=== PATIENT | female | born 1995 | race Caucasian/White ===

== ENCOUNTER 2020-11-06 19:05 | Emergency (ER) | payer OTHER ==
[~2020-11-06] VITALS: Ht 149.9 cm; Wt 70.5 kg
[2020-11-06 19:09] VITALS: TEMP 98.4
[2020-11-06] MEDS ORDERED: NEURONTIN300 MG/CAP PO (19:42)
[2020-11-06] MEDS ORDERED: LEXAPRO 5MG5 MG PO (19:42)
[2020-11-06 20:09] LABS: BASO # 0.1 (0.0-0.2); BASO % 1.3 % (0.0-2.0); EOS # 0.1 (0.0-0.7); EOS % 1.3 % (0-4.0); GRAN # 5.1 (1.4-6.5); GRAN % 50.1 % (42.2-75.2); HEMATOCRIT 40.1 % (37.0-47.0); HEMOGLOBIN 13.4 g/dl (12.5-16.0); LYMPH # 4.2 (1.2-3.4); LYMPH % 40.9 % (20.0-51.0); MEAN CELL VOLUME 82 fl (80.0-100.0); MEAN CORPUSCULAR HEMOGLOBIN 27 pg (27.0-31.0); MEAN CORPUSCULAR HGB CONC 33 g/dl (33.0-37.0); MONO # 0.6 (0.1-0.6); MONO % 6.2 % (1.7-9.3); PLATELET COUNT 582 K/mm3 (130-400); REDCELL DISTRIBUTION WIDTH-CV 12.7 % (11.5-14.5)
[2020-11-06 20:13] LABS: ALANINE AMINOTRANSFERASE 24 U/L (4-34); ALBUMIN 4.9 gm/dL (3.5-5.0); ALKALINE PHOSPHATASE 89 U/L (50-136); ANION GAP 11 mmol/L (7-16); AST,SGOT 32 U/L (15-37); BILIRUBIN,TOTAL 0.5 mg/dL (0.0-1.0); BLOOD UREA NITROGEN 12 mg/dL (7-17); CALCIUM 9.6 mg/dL (8.4-10.2); CARBON DIOXIDE 28 mmol/L (22-30); CHLORIDE 101 mmol/L (98-107); CREATININE, serum 0.69 (0.52-1.25); GLUCOSE 107 mg/dL (74-106); LIPASE 112 U/L (23-300); POTASSIUM 3.2 mmol/L (3.4-5.0); SODIUM 139 mmol/L (137-145); TOTAL PROTEIN 8.6 gm/dL (6.4-8.2)
[2020-11-06 20:25] LABS: TROPONIN-I < 0.012 ng/mL (0.000-0.035)
[2020-11-06 23:06] VITALS: BP 115/68; PULSE 72
== END 2020-11-06 23:15 | disposition home or self-care (01) ==
LOC: COL.ER 19:05 → EDBD 19:07 → COL.ER 19:07
PROVIDERS: Emergency Medicine
DX: R42 Dizziness and giddiness (principal); R07.89 Other chest pain; F32.9 Major depressive disorder, single episode, unspecified; G89.29 Other chronic pain; M54.5 Low back pain
CPT/HCPCS: J7030; Q9967

== ENCOUNTER 2022-05-02 18:20 | Day surgery (SDC) | payer OTHER ==
[~2022-05-02] VITALS: Ht 149.9 cm; Wt 75.2 kg
[~2022-05-02 18:20] MED LIST: LEXAPRO 5MG5 MG PO; NEURONTIN300 MG/CAP PO
[2022-05-02 18:37] LABS: BASO # 0.1 K/mm3 (0.0-0.2); BASO % 1.1 % (0.0-2.0); EOS # 0.1 K/mm3 (0.0-0.7); EOS % 0.9 % (0.0-4.0); GRAN # 6.6 K/mm3 (1.4-6.5); GRAN % 64.7 % (42.2-75.2); HEMATOCRIT 37.6 % (37.0-47.0); HEMOGLOBIN 12.6 g/dl (12.5-16.0); LYMPH # 2.8 K/mm3 (1.2-3.4); LYMPH % 27.1 % (20.0-51.0); MEAN CELL VOLUME 82 fl (80.0-100.0); MEAN CORPUSCULAR HEMOGLOBIN 27 pg (27-31); MEAN CORPUSCULAR HGB CONC 34 g/dl (33.0-37.0); MEAN PLATELET VOLUME 9.3 fl (7.4-10.4); MONO # 0.6 K/mm3 (0.1-0.6); MONO % 5.9 % (1.7-9.3); PLATELET COUNT 510 K/mm3 (130-400); RED BLOOD COUNT 4.61 M/mm3 (4.10-5.30); REDCELL DISTRIBUTION WIDTH-CV 13.2 % (11.5-14.5)
[2022-05-02 19:05] LABS: ALBUMIN 4.3 gm/dL (3.5-5.0); BILIRUBIN,TOTAL 0.5 mg/dL (0.2-1.2); C-REACTIVE PROTEIN 0.88 mg/dL (0.00-0.50); CALCIUM 9.7 mg/dL (8.4-10.2); CREATININE, serum 0.73 mg/dL (0.57-1.11); POTASSIUM 4.3 mmol/L (3.5-4.5); TOTAL PROTEIN 8.4 gm/dL (6.2-8.1)
[2022-05-02 19:51] LABS: COLLECTION METHOD CLEAN CATCH
[2022-05-02 19:54] LABS: URINE APPEARANCE Cloudy (CLEAR/HAZY); URINE COLOR Amber (YELLOW)
[2022-05-02 19:55] LABS: PH 5.5 (5.0-8.5); URINE BLOOD 3+ (NEGATIVE); URINE GLUCOSE Negative (NEGATIVE); URINE KETONE 1+ (NEGATIVE); URINE NITRATE Negative (NEGATIVE); URINE PROTEIN(semi-quant) 2+ (NEGATIVE); URINE UROBILINOGEN 0.2 E.U/dL (0.2-1.0)
[2022-05-02 20:09] LABS: MUCOUS Present (NOT PRESENT); URINE BACTERIA None Seen /hpf (NONE SEEN); URINE RBC >50 /hpf (0-2)
[2022-05-02] MEDS ORDERED: PRENATAL TABLET PO (22:57)
[2022-05-02 23:14] VITALS: BP 115/83; PULSE 82; TEMP 97.8
[2022-05-03] VITALS (10 sets, daily range): BP systolic 94–112; BP diastolic 47–76; PULSE 55–78; TEMP 97.5–98
--- NOTE | 2022-05-03 06:35 | NUR ---
END OF SHIFT NOTE: PATIENT RESTED QUIETLY UPON ARRIVAL. PATIENT ATE BOXED LUNCH PRIOR TO MIDNIGHT THEN WAS MADE NPO. PATIENT INDEPENDENT IN ROOM. PATIENT RECEIVED ONE PRN DOSE OF PAIN MEDICATION AND SCHEDULED TYLENOL.
--- NOTE | 2022-05-03 08:00 | NUR ---
PATIENT IS A&O. VSS. PATIENT RESTING UP IN BED WITH NO COMPLAINTS. NPO FOR SURGERY LATER TODAY. IV FLUIDS INFUSING INTO RIGHT HAND VIA PUMP. PATIENT IS HER 7 MONTH OLD BABY AND IS PUMPING WHILE HERE, SUPPLIES AT BEDSIDE. HEAD TO TOE ASSESSMENT COMPLETE. NO OTHER NEEDS AT THIS TIME. INDEPENDENT IN ROOM. CALL LIGHT IN REACH.
--- NOTE | 2022-05-03 12:20 | NUR ---
PATIENT CALLED OUT STATING SHE HAS BEEN ON AN ANTIBIOTIC GTT FOR HER RIGHT EYE AND REPORTS ITS NOT HELPING. PATIENT SAYS HER RIGHT EYE IS MORE SWOLLEN AND STILL RED. PATIENT CALLED HER EYE DOCTOR, NO SCRIPT GIVEN. NOTIFIED UROLOGIST WHO IS ATTENDING FOR THIS ADMISSION, AWAITING CALL BACK.
--- NOTE | 2022-05-03 14:55 | NUR ---
Electrode Cleaner met with patient to discuss discharge planning. Patient lives in [place] and advised her , Santos (ph#[phone]) is active duty and stationed in [place] at this time. Patient is and her daughter is 7 months old. Patient advised this is her first child and her parents are here helping her. Patient obtains primary care and medications from [facility]. Patient uses an electric breast pump and no other DME. Patient is independent with ADLS and plans to return home with her parents support at discharge. Patient feels supported and has questions or concerns at this time. Discharge Plan: Home
[2022-05-03] MEDS ORDERED: OCUFLOX OPHTH DR5 ML OD (14:57)
--- NOTE | 2022-05-03 16:05 | NUR ---
PATIENT GOING DOWN TO OR VIA BED. CONSENT ON CHART. RIGHT HAND IV VIA GRAVITY. PATIENT USED EYE DROPS FOR RIGHT EYE PRIOR TO OR INSTRUCTED BY DOCTOR. PATIENT OFF FLOOR.
--- NOTE | 2022-05-03 17:50 | NUR ---
PATIENT BACK IN ROOM POST OP. A&O. VSS. DENIES PAIN. NO C/O N/V. PATIENT GIVEN LIQUIDS AND LOOKING AT MENU. PATIENT WILL BE ABLE TO DISCHARGE HOME TONIGHT AFTER SHE MEETS CRITERIA.
--- NOTE | 2022-05-03 19:57 | NUR ---
PT A&OX4 RESTING IN BED. PT TOLERATED DINNER WELL. ASSESSMENT COMPLETE. PT DENIES PN. PT MEETING DISCHARGE CRITERIA AND PLAN TO LEAVE THIS EVENING. NO NEEDS AT THIS TIME. CALL LIGHT WITHIN REACH.
--- NOTE | 2022-05-03 20:40 | NUR ---
INT DISCONTINUED. DISCHARGE INSTRUCTIONS GIVEN TO PT AND FAMILY. PT AMBULATED OUT TO PERSONAL VEHICLE TO DISCHARGE HOME.
== END 2022-05-03 20:40 | disposition home or self-care (01) ==
LOC: COL.ER 18:20 → SURG 22:36 → SDCO 22:36 → SURG 22:36 → COL.ER 22:36 → SURG 22:37 → SDCO 05-03 20:40 → SURG 05-03 20:40
PROVIDERS: Nurse Practitioner
DX: N13.2 Hydronephrosis with renal and ureteral calculous obstruction (principal)
CPT/HCPCS: OP; C1769; G0378; J0690; J0696; J1100; J1170; J1885; J2405; J2704; J3010; J7030; Q9967

== ENCOUNTER 2023-06-01 10:26 | Inpatient (IN) | payer OTHER ==
[~2023-06-01] VITALS: Ht 149.9 cm; Wt 81.5 kg
[~2023-06-01 10:26] MED LIST changes: +FLOMAX 0.40.4 MG/CAP PO; +FOLIC ACID 40400 MCG PO; +NEURONTIN600 MG/TAB PO; +NORCO 325 MG-51 TAB PO; +OCUFLOX OPHTH DR5 ML OD; +PHARMASSURE ZIN50 MG PO; +PRENATAL TABLET PO; +RESTORIL 77.5 MG/CAP PEG; +VITAMIN C500 MG PO
[2023-06-01 11:01] LABS: BASO # 0.1 K/mm3 (0.0-0.2); BASO % 0.8 % (0.0-2.0); EOS % 0.4 % (0.0-4.0); GRAN # 7.2 K/mm3 (1.4-6.5); GRAN % 78.8 % (42.2-75.2); HEMATOCRIT 38.5 % (37.0-47.0); HEMOGLOBIN 12.7 g/dl (12.5-16.0); LYMPH # 1.5 K/mm3 (1.2-3.4); LYMPH % 16.8 % (20.0-51.0); MEAN CELL VOLUME 83 fl (80.0-100.0); MEAN CORPUSCULAR HEMOGLOBIN 27 pg (27-31); MEAN CORPUSCULAR HGB CONC 33 g/dl (33.0-37.0); MEAN PLATELET VOLUME 8.8 fl (7.4-10.4); MONO # 0.3 K/mm3 (0.1-0.6); MONO % 2.8 % (1.7-9.3); PLATELET COUNT 455 K/mm3 (130-400); RED BLOOD COUNT 4.66 M/mm3 (4.10-5.30); REDCELL DISTRIBUTION WIDTH-CV 12.9 % (11.5-14.5)
[2023-06-01 11:11] LABS: COLLECTION METHOD CLEAN CATCH
[2023-06-01 11:19] LABS: MUCOUS Present (NOT PRESENT); SQUAMOUS EPITHELIAL None Seen /hpf (0-10); URINE BACTERIA Rare /hpf (NONE SEEN)
[2023-06-01 11:22] LABS: URINE APPEARANCE Cloudy (CLEAR/HAZY); URINE BLOOD TRACE-INTACT (NEGATIVE); URINE COLOR Yellow (YELLOW); URINE GLUCOSE Negative (NEGATIVE); URINE KETONE Negative (NEGATIVE); URINE NITRATE Negative (NEGATIVE); URINE PROTEIN(semi-quant) Negative (NEGATIVE); URINE UROBILINOGEN 0.2 E.U/dL (0.2-1.0)
[2023-06-01 11:36] LABS: ALBUMIN 4.1 gm/dL (3.5-5.0); BILIRUBIN,TOTAL 1.2 mg/dL (0.2-1.2); C-REACTIVE PROTEIN 4.37 mg/dL (0.00-0.50); CREATININE, serum 0.73 mg/dL (0.57-1.11); TOTAL PROTEIN 7.9 gm/dL (6.2-8.1)
[2023-06-01] MEDS ORDERED: AMBIEN 5MG TABLE5 MG PO (14:11)
[2023-06-01] MEDS ORDERED: FLEXERIL 1010 MG/TAB PO (14:12)
[2023-06-01 14:30] VITALS: BP 85/44; PULSE 101; PULSE 56; TEMP 98.2
[2023-06-01 14:45] VITALS: BP 88/42; PULSE 102
[2023-06-01 15:20] VITALS: BP 95/49; PULSE 99; TEMP 98.2
[2023-06-01 17:31] VITALS: BP_SYST 95
--- NOTE | 2023-06-01 18:00 | NUR ---
Patient admitted to room 352 at approximately 1630. Blood pressure soft- Dr. Enriquez aware. LR infusing at 150ml/hr to RW. Reported nausea and bilateral flank pain. Zofran and Tylenol adminsitered. Pt reports pain has decreased to 4/10 and denies nausea at this time. Admission intake, physical and med rec completed.
[2023-06-01 20:00] VITALS: BP 97/58; PULSE 87; TEMP 97.9
--- NOTE | 2023-06-01 20:00 | NUR ---
Patient resting in bed. States she has a headache and rates her pain a 6/10, pain meds given. Assessment complete. IV in right wrist appears clean, dry, intact and flushes easily with no complication. Denies any other needs at this time. Call light and personal items in reach. Bed in low postion.
[2023-06-01 21:00] VITALS: BP_SYST 97
[2023-06-02] VITALS (13 sets, daily range): BP systolic 91–118; BP diastolic 49–69; PULSE 81–126; TEMP 98–100.6
--- NOTE | 2023-06-02 06:00 | NUR ---
Beverly resting in bed. States she has a slight headache and she is starting to get the chills again, Tylenol given. Denies any other needs at this time. Patient monitored throughout the night by this nurse. Call light and personal items in reach. Bed in low postion.
[2023-06-02 07:16] LABS: BASO # 0.1 K/mm3 (0.0-0.2); BASO % 0.6 % (0.0-2.0); EOS # 0.1 K/mm3 (0.0-0.7); EOS % 0.6 % (0.0-4.0); GRAN # 9.3 K/mm3 (1.4-6.5); GRAN % 74.8 % (42.2-75.2); HEMOGLOBIN 11.7 g/dl (12.5-16.0); LYMPH # 1.7 K/mm3 (1.2-3.4); MEAN CELL VOLUME 84 fl (80.0-100.0); MEAN CORPUSCULAR HEMOGLOBIN 27 pg (27-31); MEAN CORPUSCULAR HGB CONC 32 g/dl (33.0-37.0); MEAN PLATELET VOLUME 8.9 fl (7.4-10.4); MONO # 1.2 K/mm3 (0.1-0.6); MONO % 9.5 % (1.7-9.3); PLATELET COUNT 466 K/mm3 (130-400); RED BLOOD COUNT 4.32 M/mm3 (4.10-5.30); REDCELL DISTRIBUTION WIDTH-CV 13.2 % (11.5-14.5)
[2023-06-02 07:23] LABS: HEMATOCRIT 36.4 % (37.0-47.0)
[2023-06-02 07:31] LABS: CALCIUM 8.6 mg/dL (8.4-10.2); CREATININE, serum 0.77 mg/dL (0.57-1.11); POTASSIUM 3.7 mmol/L (3.5-4.5)
--- NOTE | 2023-06-02 09:17 | NUR ---
pt resting in the bed. stated no complaints of pain during med pass. urine has been strained, no stones have been seen in the urine. pt stated over night she was having increased pain but is comfortable at this time.
--- NOTE | 2023-06-02 13:31 | NUR ---
Initial visit: Water Main Pipe Layer stopped by room on rounds. Pt was resting and content. Pt has no needs right now. Water Main Pipe Layer will follow up as needed.
--- NOTE | 2023-06-02 13:36 | NUR ---
PT WITH INCREASED HEART RATE OF 111 AND TEMP OF 100.2 DURING 1200 VITALS. PRN TYLENOL GIVEN FOR TEMP. TEMP NOW 98.2. PT COMFORTABLE AND RESTING IN THE BED. NO COMPLAINTS AT THIS TIME.
--- NOTE | 2023-06-02 14:10 | NUR ---
crisis worker met with patient to discuss discharge planning. Patient confirmed she lives in [place] with her Santos P#: [phone]. Patient reported her primary care physician is at [facility] in [place], Dr. Bejarano and her preferred pharmacy is [facility] in [place]. Patient denies having difficulty affording her medications. Patient does not have a DPOA-HC and does not wish to complete one at this time. Patient does not have any DME at home and is independent with her ADLS. Patient would like to return home at time of discharge. Patient did not have any further needs at this time. Discharge Plan: Home
--- NOTE | 2023-06-02 19:30 | NUR ---
Patient resting in bed. Patient rates her pain a 6/10, pain meds provided. Assessment complete. Denies any other needs at this time. IV in right hand appears clean, dry, intact, and infusing with no complications. Call light and personal items in reach. Bed in low position.
[2023-06-03] VITALS (9 sets, daily range): BP systolic 94–114; BP diastolic 46–74; PULSE 81–105; TEMP 98–100.7
[2023-06-03 04:53] LABS: BASO # 0.1 K/mm3 (0.0-0.2); BASO % 0.5 % (0.0-2.0); EOS # 0.1 K/mm3 (0.0-0.7); EOS % 0.7 % (0.0-4.0); GRAN # 9.3 K/mm3 (1.4-6.5); HEMOGLOBIN 10.2 g/dl (12.5-16.0); LYMPH # 1.9 K/mm3 (1.2-3.4); LYMPH % 14.6 % (20.0-51.0); MEAN CELL VOLUME 84 fl (80.0-100.0); MEAN CORPUSCULAR HEMOGLOBIN 28 pg (27-31); MEAN CORPUSCULAR HGB CONC 33 g/dl (33.0-37.0); MEAN PLATELET VOLUME 9.1 fl (7.4-10.4); MONO # 1.4 K/mm3 (0.1-0.6); MONO % 10.7 % (1.7-9.3); PLATELET COUNT 410 K/mm3 (130-400); REDCELL DISTRIBUTION WIDTH-CV 13.2 % (11.5-14.5)
[2023-06-03 05:00] LABS: HEMATOCRIT 30.9 % (37.0-47.0)
[2023-06-03 05:16] LABS: CALCIUM 8.3 mg/dL (8.4-10.2); CREATININE, serum 0.62 mg/dL (0.57-1.11); POTASSIUM 3.4 mmol/L (3.5-4.5)
--- NOTE | 2023-06-03 06:00 | NUR ---
Patient resting in bed. Denies any pain at this time. Patient monitored throughtout the night by this nurse. Denies any other needs at this time. Call light and personal items in reach. Bed in low postion.
--- NOTE | 2023-06-03 10:01 | NUR ---
Patient alert and oriented x4. Shift assessment complete, no new variances noted. Patient reports ongoing malaise and chills overnight. Patient complains of sinus pressure in head. COVID test and UA pending at this time. Denies increase in pain. Patient currently resting in bed with call light in reach.
--- NOTE | 2023-06-03 16:56 | NUR ---
Patient reported chills and feeling cold around 1500. Temperature noted to be 100.1. PRN Tylenol administered. Patient resting in bed with call light in reach at this time.
[2023-06-03 17:30] LABS: COLLECTION METHOD CLEAN CATCH
[2023-06-03 17:55] LABS: SQUAMOUS EPITHELIAL 0-2 /hpf (0-10); URINE BACTERIA None Seen /hpf (NONE SEEN); URINE RBC 0-2 /hpf (0-2)
[2023-06-03 17:56] LABS: URINE APPEARANCE Clear (CLEAR/HAZY); URINE BLOOD Negative (NEGATIVE); URINE COLOR Yellow (YELLOW); URINE GLUCOSE Negative (NEGATIVE); URINE KETONE 2+ (NEGATIVE); URINE NITRATE Negative (NEGATIVE); URINE PROTEIN(semi-quant) Negative (NEGATIVE); URINE UROBILINOGEN 0.2 (NEGATIVE)
--- NOTE | 2023-06-03 18:22 | NUR ---
Patient continues to complain of 8/10 pain to right side. PRN Tylenol not effective, PRN Toradol administered around 1700. Toradol has not changed pain level. This nurse offered PRN morphine, patient states she wants to give Toradol some more time to work and if not she will call for additional pain meds. Patient continues to pass kidney stones less than or equal to 2mm. Urine is yellow and clear. Patient currently in bed with call light in reach.
--- NOTE | 2023-06-03 22:45 | NUR ---
MELISSA COMPLAINED OF SHIVERING. TEMPERATURE CHECK- 98.7. APPLIED WARM BLANKETS.
--- NOTE | 2023-06-03 22:48 | NUR ---
AT SHIFT ASSESSMENT, MELISSA WAS EATING FOOD BROUGHT IN BY HER AND WATCHING TV. SHE C/O OF RT FLANK PAIN R/T KIDNEY STONES RATED 4/10 AND STATED PAIN WAS, "GETTING BETTER". LUNGS SOUNDS WERE CLEAR, HOWEVER, MELISSA HAD A PRODUCTIVE COUGH AND REQUESTED COUGH MEDICINE (COVID WAS NEGATIVE). SHE HAD 11,000 MLS OF URINE COLLECTED IN TWO URINE HATS. STRAINING REVEALED 5 SMALL PARTICLES THE SIZE OF A GRAIN OF SAND, LESS THAN 1 MM. VSS WERE WNL. CALL LIGHT WITHIN REACH.
[2023-06-04 01:05] VITALS: BP_SYST 105
[2023-06-04 03:18] VITALS: BP 109/66; PULSE 87; TEMP 99.1
[2023-06-04 05:09] VITALS: BP_SYST 109
--- NOTE | 2023-06-04 05:20 | NUR ---
MELISSA'S TEMP AT 03:19 WAS 99.1. RECHECKED HER TEMP TO ENSURE SHE WAS NOT APPROACHING FEBRILE TEMP. TEMPERATURE WAS 98.3.
--- NOTE | 2023-06-04 05:44 | NUR ---
MELISSA REMAINED AFEBRILE THROUGHOUT THE NIGHT. SHE CONTINUED TO RATE HER PAIN 6/10 BUT REFUSED PAIN MEDICATION OTHER THAN TYLENOL. SHE ALSO HAD A PRESISTANT COUGH AND RUNNY NOSE; ROBITUSSIN DID NOT SEEM TO PROVIDE MUCH RELIEF. MELISSA HAD AN EPISODE OF CHILLS AND SHIVERING AND TYLENOL WAS ADMINISTERED AND SYMPTOMS RESOLVED. DURING ASSESSMENT @ 06:00, MELISSA WAS SLEEPING SOUNDLY WITH NO EVIDENT SHIVERING OR CHILLS, HOWEVER, COUGHING WAS OBSERVED.
[2023-06-04 06:30] LABS: BASO # 0.1 K/mm3 (0.0-0.2); BASO % 0.8 % (0.0-2.0); EOS # 0.2 K/mm3 (0.0-0.7); EOS % 1.5 % (0.0-4.0); GRAN # 7.5 K/mm3 (1.4-6.5); LYMPH # 2.8 K/mm3 (1.2-3.4); LYMPH % 24.2 % (20.0-51.0); MEAN CELL VOLUME 83 fl (80.0-100.0); MEAN CORPUSCULAR HEMOGLOBIN 27 pg (27-31); MEAN CORPUSCULAR HGB CONC 32 g/dl (33.0-37.0); MEAN PLATELET VOLUME 9.2 fl (7.4-10.4); MONO # 1.1 K/mm3 (0.1-0.6); MONO % 9.1 % (1.7-9.3); PLATELET COUNT 480 K/mm3 (130-400); RED BLOOD COUNT 4.12 M/mm3 (4.10-5.30)
[2023-06-04 06:46] LABS: CALCIUM 9.2 mg/dL (8.4-10.2); CREATININE, serum 0.71 mg/dL (0.57-1.11); POTASSIUM 3.9 mmol/L (3.5-4.5)
[2023-06-04 07:32] VITALS: BP 110/62; PULSE 98; TEMP 98.3
--- NOTE | 2023-06-04 08:00 | NUR ---
Patient laying in bed, A&Ox4. VSS. IV CDI. Denies pain and discomfort. Call light within reach
[2023-06-04] MEDS ORDERED: CEFTIN500 MG PO (10:36)
--- NOTE | 2023-06-04 11:19 | NUR ---
Discharge paperwork reviewed with the patient and family at bedside. Patient verbalized an understanding to follow doctors orders. IV removed, tip intact. Patient ambulated independently to vehicle. No further needs expressed
== END 2023-06-04 11:35 | disposition home or self-care (01) | DRG 694 ==
LOC: COL.ER 10:26 → MEDICAL 13:13 → COL.ER 13:13 → MEDICAL 06-03 08:27
PROVIDERS: Nurse Practitioner; Nurse Practitioner Family; ADMIT Internal Medicine
DX: N20.0 Calculus of kidney (principal); N39.0 Urinary tract infection, site not specified; Z20.822 Contact with and (suspected) exposure to COVID-19; M54.9 Dorsalgia, unspecified; G89.29 Other chronic pain; G47.00 Insomnia, unspecified; F41.9 Anxiety disorder, unspecified; F32.A Depression, unspecified; E87.6 Hypokalemia; B97.89 Other viral agents as the cause of diseases classified elsewhere; N13.9 Obstructive and reflux uropathy, unspecified; B96.20 Unspecified Escherichia coli [E. coli] as the cause of diseases classified elsewhere; B97.10 Unspecified enterovirus as the cause of diseases classified elsewhere; Z79.899 Other long term (current) drug therapy
CPT/HCPCS: G0378; J0696; J1170; J1885; J2270; J2405; J3480; J7030; J7120; Q9967

== ENCOUNTER 2023-11-14 14:11 | Emergency (ER) | payer OTHER ==
[~2023-11-14] VITALS: Ht 149.9 cm; Wt 81.8 kg
[~2023-11-14 14:11] MED LIST changes: +AMBIEN 5MG TABLE5 MG PO; +CEFTIN500 MG PO; +FLEXERIL 1010 MG/TAB PO; +PYRIDIUM 100MG100 MG PO
[2023-11-14 14:32] VITALS: TEMP 98.7
[2023-11-14] MEDS ORDERED: TORADOL 10MG TA10 MG PO (15:46)
[2023-11-14] MEDS ORDERED: FLEXERIL 1010 MG/TAB PO (15:46)
[2023-11-14 15:57] VITALS: BP 114/77; PULSE 86
== END 2023-11-14 15:57 | disposition home or self-care (01) ==
LOC: COL.ER 14:11
DX: M79.661 Pain in right lower leg (principal)

== ENCOUNTER → 2023-11-30 | Outpatient (CLI) | payer OTHER ==
[~2023-11-30] MED LIST changes: +TORADOL 10MG TA10 MG PO
== END ==
LOC: COL.RAD 13:43
DX: R10.11 Right upper quadrant pain (principal); Z87.442 Personal history of urinary calculi